=== PATIENT | male | born 1950 | race Caucasian/White ===

== ENCOUNTER 2017-07-30 07:47 | Outpatient (CLI) | payer BC ==
--- NOTE | 2017-07-30 12:33 | MRI Report ---
EXAM MRA BRAIN EXAM DATE: 07/30/2017 08:57 AM. CLINICAL HISTORY: SUBJECTIVE PULSATILE TINNITUS, LEFT. COMPARISON: None. TECHNIQUE: Multiplanar, multisequence MRA sequences of the brain were performed. Other: None. Post-pr ocessing: Multiplanar 3D MIP reconstructions. IV Contrast: None. FINDINGS: RIGHT Internal Carotid (ICA): No aneurysm, stenosis or anomaly. Middle Cerebral (MCA): No aneurysm, stenosis or anomaly. Anterior Cerebral (DANNY): No aneurysm, stenosis or anomaly. Posterior Cerebral (PEARL STRINGER): No aneurysm, stenosis or anomaly. Posterior Communicating (P-COM): Not present. Vertebral: No aneurysm, stenosis or anomaly in the visualized upper vertebral artery. LEFT Internal Carotid (ICA): No aneurysm, stenosis or anomaly. Middle Cerebral (MCA): No aneurysm, stenosis or anomaly. Anterior Cerebral (DANNY): No aneurysm, stenosis or anomaly. Posterior Cerebral (PEARL STRINGER): No aneurysm, stenosis or anomaly. Posterior Communicating (P-COM): Not present. Vertebral: No aneurysm, stenosis or anomaly in the visualized upper vertebral artery. MIDLINE Anterior Communicating (A-COM): No aneurysm, stenosis or anomaly. Basilar Artery:No aneurysm, stenosis or anomaly. Other: None. IMPRESSION: 1. Normal brain MRA. No stenoses or aneurysms. [facility] Referring Provider Line: [phone] SITE ID: [id number]
--- NOTE | 2017-07-30 13:31 | MRI Report ---
EXAM: MR ANGIOGRAM NECK EXAM DATE: 07/30/2017 08:57 AM. CLINICAL HISTORY: Subjective pulsatile tinnitus, left. COMPARISON: None. TECHNIQUE: Multiplanar, multisequence MRA sequences of the neck were performed. Other: None. Post-pro cessing: Multiplanar 3D MIP reconstructions. IV Contrast: None. Evaluation of arterial stenosis is b ased on a NASCET method of measurement. FINDINGS: Inherently limited arterial evaluation at the skull base and in the low neck. As far as visualized, s ymmetric unremarkable appearance of the cervical vertebral and carotid arteries without evidence for acute abnormality or focal flow limiting stenosis. No evidence for space occupying mass associated wi th the cervical carotid arteries. The vertebral and carotid artery flow voids are maintained. Findings are consistent with surgical abs ence of the left half of the thyroid gland. Grossly symmetric vocal cords. IMPRESSION: Unremarkable neck MRA. No hemodynamically significant stenoses. [facility] Referring Provider Line: [phone] SITE ID: [id number]
== END 2017-07-30 07:48 | disposition home or self-care (01) ==
LOC: DI 07:47
PROVIDERS: ATTEND Physician Assistant Medical
DX: H93.12 Tinnitus, left ear (principal)
CPT/HCPCS: 70544; 70547

== ENCOUNTER 2018-11-10 07:23 | Outpatient (CLI) | payer MEDICARE, BC ==
[2018-11-10 13:37] LABS: ALBUMIN/GLOBULIN RATIO 1.3 (1.0-2.2); ALKALINE PHOSPHATASE 57 IU/L (42-121); ALT ALANINE AMINOTRANSFERASE 29 IU/L (10-60); AST ASPARTATE AMINOTRANSFERASE 27 IU/L (10-42); BILIRUBIN,TOTAL 0.6 mg/dL (0.2-1.0); BUN - BLOOD UREA NITROGEN 19 mg/dL (6-20); CALCIUM 9.2 mg/dL (8.5-10.3); CARBON DIOXIDE - CO2 24 mmol/L (21-32); CHLORIDE 106 mmol/L (101-111); CHOL/HDL RATIO 7.3 (<5.0); CHOLESTEROL 271 mg/dL; CREATININE 0.8 mg/dL (0.6-1.2); GFR - MDRD 97 (>89); GLUCOSE 102 mg/dL (70-100); HDL CHOLESTEROL 37 mg/dL; LDL CHOLESTEROL,CALCULATED 173 mg/dL; LDL/HDL RATIO 4.7 (<3.6); SODIUM 138 mmol/L (135-145); TOTAL PROTEIN 7.2 g/dL (6.7-8.2); VLDL CHOLESTEROL 61 mg/dL
== END 2018-11-10 07:24 | disposition home or self-care (01) ==
LOC: LAB.WCP 07:23
PROVIDERS: ATTEND Physician Assistant Medical
DX: E78.5 Hyperlipidemia, unspecified (principal); E03.9 Hypothyroidism, unspecified
CPT/HCPCS: 36415; 80053; 80061; 83721; 84443

== ENCOUNTER 2019-03-07 08:00 | Outpatient (CLI) | payer MEDICARE, BC ==
[2019-03-07 12:49] LABS: ALBUMIN 4.2 g/dL (3.2-5.5); ALBUMIN/GLOBULIN RATIO 1.2 (1.0-2.2); ALKALINE PHOSPHATASE 61 IU/L (42-121); ALT ALANINE AMINOTRANSFERASE 32 IU/L (10-60); AST ASPARTATE AMINOTRANSFERASE 27 IU/L (10-42); BILIRUBIN,TOTAL 0.9 mg/dL (0.2-1.0); BUN - BLOOD UREA NITROGEN 19 mg/dL (6-20); CALCIUM 9.3 mg/dL (8.5-10.3); CARBON DIOXIDE - CO2 27 mmol/L (21-32); CHLORIDE 108 mmol/L (101-111); CHOL/HDL RATIO 3.9 (<5.0); CHOLESTEROL 198 mg/dL; CREATININE 0.8 mg/dL (0.6-1.2); GFR - MDRD 97 (>89); GLUCOSE 100 mg/dL (70-100); HDL CHOLESTEROL 51 mg/dL; LDL CHOLESTEROL,CALCULATED 122 mg/dL; LDL/HDL RATIO 2.4 (<3.6); SODIUM 140 mmol/L (135-145); TOTAL PROTEIN 7.7 g/dL (6.7-8.2); VLDL CHOLESTEROL 25 mg/dL
== END 2019-03-07 23:59 | disposition home or self-care (01) ==
LOC: LAB.WCP 08:00
PROVIDERS: ATTEND Physician Assistant Medical
DX: E78.5 Hyperlipidemia, unspecified (principal)
CPT/HCPCS: 36415; 80053; 80061; 83721

== ENCOUNTER → 2020-02-09 | Outpatient (CLI) | payer MEDICARE, BC ==
--- NOTE | 2020-02-09 18:45 | XRAY Report ---
PROCEDURE: Hand 2 View BILAT INDICATIONS: BILATERAL THUMB PAIN TECHNIQUE: 3 views of the hand(s) acquired. COMPARISON: None FINDINGS: Bones: No fractures or dislocations. Moderate to severe right first CMC joint osteoarthritic changes are seen. Mild right first CMC joint osteoarthritic changes also seen. Mild osteoarthritic changes a re noted throughout bilateral interphalangeal joints. No gross bony erosive changes. No suspicious mari ny lesions. Soft tissues: No suspicious soft tissue calcifications. IMPRESSION: 1. 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 2. Mild osteoarthritic changes in left first CMC joint and bilateral interphalangeal joints. 3. No acute fracture or dislocation. No gross bony erosive changes. Reviewed by: Ildefonso Adames MD on 02/09/2020 9:31 AM PDT Approved by: Ildefonso Adames MD on 02/09/2020 9:31 AM PDT Station ID: [id number]
== END ==
LOC: DI.WCP 08:38
PROVIDERS: ATTEND Physician Assistant
DX: M18.0 Bilateral primary osteoarthritis of first carpometacarpal joints (principal); M19.042 Primary osteoarthritis, left hand; M19.041 Primary osteoarthritis, right hand

== ENCOUNTER 2020-04-10 10:45 | Outpatient (CLI) | payer MEDICARE, BC ==
[2020-04-10 18:28] LABS: BASOPHILS % (AUTO) 0.4 %; EOSINOPHILS # (AUTO) 0.1 10^3/uL (0.0-0.7); EOSINOPHILS % (AUTO) 1.7 %; HGB - HEMOGLOBIN 14.6 g/dL (14.0-18.0); LYMPHOCYTES # (AUTO) 1.6 10^3/uL (1.5-3.5); LYMPHOCYTES % (AUTO) 33.5 %; MEAN CORPUSCULAR HEMOGLOBIN 30.2 pg (27.0-31.0); MEAN CORPUSCULAR HGB CONC 32.2 g/dL (32.0-36.0); MEAN CORPUSCULAR VOLUME 93.8 fL (80.0-94.0); MEAN PLATELET VOLUME 9.8 fL (7.4-11.4); MONOCYTES # (AUTO) 0.5 10^3/uL (0.0-1.0); MONOCYTES % (AUTO) 10.2 %; NEUTROPHILS # (AUTO) 2.6 10^3/uL (1.5-6.6); NEUTROPHILS % (AUTO) 54.2 %; PLT - PLATELET COUNT 241 10^3/uL (130-450); RED BLOOD COUNT 4.83 10^6/uL (4.70-6.10); RED CELL DISTRIBUTION WIDTH 12.8 % (12.0-15.0); WHITE BLOOD COUNT 4.8 x10^3/uL (4.8-10.8)
[2020-04-10 19:01] LABS: ALBUMIN 4.5 g/dL (3.2-5.5); ALBUMIN/GLOBULIN RATIO 1.3 (1.0-2.2); ALKALINE PHOSPHATASE 73 IU/L (42-121); ALT ALANINE AMINOTRANSFERASE 34 IU/L (10-60); AST ASPARTATE AMINOTRANSFERASE 29 IU/L (10-42); BUN - BLOOD UREA NITROGEN 13 mg/dL (6-20); CALCIUM 9.4 mg/dL (8.5-10.3); CARBON DIOXIDE - CO2 29 mmol/L (21-32); CHLORIDE 104 mmol/L (101-111); CHOL/HDL RATIO 4.3 (<5.0); CHOLESTEROL 217 mg/dL; CREATININE 0.9 mg/dL (0.6-1.2); GLUCOSE 96 mg/dL (70-100); HDL CHOLESTEROL 51 mg/dL; LDL CHOLESTEROL,CALCULATED 138 mg/dL; LDL/HDL RATIO 2.7 (<3.6); SODIUM 139 mmol/L (135-145); TOTAL PROTEIN 7.9 g/dL (6.7-8.2); VLDL CHOLESTEROL 28 mg/dL
== END 2020-04-10 10:46 | disposition home or self-care (01) ==
LOC: LAB.WCP 10:45
PROVIDERS: ATTEND Family Medicine
DX: E78.5 Hyperlipidemia, unspecified (principal); Z12.5 Encounter for screening for malignant neoplasm of prostate; J30.9 Allergic rhinitis, unspecified
CPT/HCPCS: 36415; 80053; 80061; 85025; G0103; 83721; 84153

== ENCOUNTER 2020-08-19 13:12 | Outpatient (CLI) | payer MEDICARE, BC ==
--- NOTE | 2020-08-19 14:40 | MRI Report ---
This PROCEDURE: Shoulder LT W/O INDICATIONS: LT BICEP TENDON DISORDER TECHNIQUE: Noncontrast oblique coronal T2 fast spin echo with fat saturation, oblique sagittal T1 spin echo and T2 fast spin echo with fat saturation, axial T1 spin echo and T2 fast spin echo with fat saturation t hrough the shoulder. COMPARISON: None. FINDINGS: Image quality: Excellent. Rotator cuff: Full-thickness tear of the supraspinatus tendon measuring approximately 1 cm in AP dimension as seen on sagittal pulse sequences, and 1 cm as seen on coronal pulse sequences. Infraspinatus tendinopathy and thickening with low-grade partial thickness articular and bursal sided tear as well as interstiti al tearing extending to the musculotendinous junction. The teres minor tendon appears intact. Subscap ularis tendinopathy and thickening. Borderline atrophy of the supraspinatus muscle. There is fatty in filtration of the infraspinatus and supraspinatus. Bones and bursae: No bone marrow contusions or fractures. Moderate hypertrophic acromioclavicular joint degeneration. Glenohumeral joint degeneration. The acromion demonstrates conventional anatomy, without an os acromiale. Moderate glenohumeral joint effusion. Capsule and soft tissues: Labrum: Blunted and frayed appearance of the superior labrum. There is chronic posterior labral tear with adjacent glenoid rim sclerosis and spurring. No subluxed appearance of the humeral head relative to the glenoid to suggest microinstability. Intra-articular segment of the long head biceps tendon is not well visualized and suspected ruptured The rotator interval appears normal, without fibrosis. The coracohumeral ligament is normal in thickness. IMPRESSION: Full-thickness tear of the supraspinatus tendon. Borderline atrophy of the supraspinatus muscle. Infraspinatus tendinopathy with low-grade partial thickness articular and bursal sided tear, and inte rstitial tearing extending to the musculotendinous junction. Subscapularis tendinopathy Chronic posterior labral tear in addition to blunting and fraying of the superior segment (also proba ale chronic/degenerative). Rupture of the long head biceps tendon. Degenerative joint disease, with moderate glenohumeral joint effusion. Reviewed by: Quinten Severino MD on 08/19/2020 2:39 PM PST Approved by: Quinten Severino MD on 08/19/2020 2:39 PM [facility] Station ID: [id number]
== END 2020-08-19 13:13 | disposition home or self-care (01) ==
LOC: DI 13:12
PROVIDERS: ATTEND Physician Assistant Medical
DX: M67.922 Unspecified disorder of synovium and tendon, left upper arm (principal); M19.012 Primary osteoarthritis, left shoulder; S46.112A Strain of muscle, fascia and tendon of long head of biceps, left arm, initial encounter; M75.102 Unspecified rotator cuff tear or rupture of left shoulder, not specified as traumatic; S43.492A Other sprain of left shoulder joint, initial encounter

== ENCOUNTER 2021-08-08 09:54 | Outpatient (CLI) | payer MEDICARE, BC ==
[2021-08-08 12:01] LABS: BASOPHILS % (AUTO) 0.6 %; EOSINOPHILS # (AUTO) 0.1 10^3/uL (0.0-0.7); EOSINOPHILS % (AUTO) 1.6 %; HCT - HEMATOCRIT 41.7 % (42.0-52.0); HGB - HEMOGLOBIN 13.6 g/dL (14.0-18.0); LYMPHOCYTES # (AUTO) 1.5 10^3/uL (1.5-3.5); LYMPHOCYTES % (AUTO) 30.3 %; MEAN CORPUSCULAR HEMOGLOBIN 29.8 pg (27.0-31.0); MEAN CORPUSCULAR HGB CONC 32.6 g/dL (32.0-36.0); MEAN CORPUSCULAR VOLUME 91.2 fL (80.0-94.0); MEAN PLATELET VOLUME 9.8 fL (7.4-11.4); MONOCYTES # (AUTO) 0.4 10^3/uL (0.0-1.0); NEUTROPHILS # (AUTO) 2.9 10^3/uL (1.5-6.6); NEUTROPHILS % (AUTO) 58.3 %; PLT - PLATELET COUNT 239 10^3/uL (130-450); RED BLOOD COUNT 4.57 10^6/uL (4.70-6.10); RED CELL DISTRIBUTION WIDTH 12.7 % (12.0-15.0); WHITE BLOOD COUNT 4.9 x10^3/uL (4.8-10.8)
[2021-08-08 12:36] LABS: THYROID STIMULATING HORMONE 3.75 uIU/mL (0.34-5.60)
[2021-08-08 12:39] LABS: ALBUMIN 4.1 g/dL (3.2-5.5); ALBUMIN/GLOBULIN RATIO 1.3 (1.0-2.2); ALKALINE PHOSPHATASE 62 IU/L (42-121); ALT ALANINE AMINOTRANSFERASE 20 IU/L (10-60); AST ASPARTATE AMINOTRANSFERASE 21 IU/L (10-42); BILIRUBIN,TOTAL 0.7 mg/dL (0.2-1.0); BUN - BLOOD UREA NITROGEN 14 mg/dL (6-20); CALCIUM 9.3 mg/dL (8.5-10.3); CARBON DIOXIDE - CO2 27 mmol/L (21-32); CHLORIDE 105 mmol/L (101-111); CHOL/HDL RATIO 3.6 (<5.0); CHOLESTEROL 168 mg/dL; CREATININE 0.9 mg/dL (0.6-1.2); GFR - MDRD 84 (>89); GLUCOSE 95 mg/dL (70-100); HDL CHOLESTEROL 47 mg/dL; LDL CHOLESTEROL,CALCULATED 96 mg/dL; POTASSIUM 4.6 mmol/L (3.5-5.0); SODIUM 140 mmol/L (135-145); TOTAL PROTEIN 7.3 g/dL (6.7-8.2); TRIGLYCERIDES 124 mg/dL; VLDL CHOLESTEROL 25 mg/dL
== END 2021-08-08 09:55 | disposition home or self-care (01) ==
LOC: LAB.N 09:54
PROVIDERS: ATTEND Physician Assistant Medical
DX: E78.5 Hyperlipidemia, unspecified (principal); Z12.5 Encounter for screening for malignant neoplasm of prostate; E03.9 Hypothyroidism, unspecified; I10 Essential (primary) hypertension; R97.20 Elevated prostate specific antigen [PSA]
CPT/HCPCS: 36415; 80053; 80061; 84443; 85025; G0103; 83721; 84153

== ENCOUNTER 2021-08-18 08:00 | Outpatient (CLI) | payer MEDICARE, BC ==
[2021-08-18 12:00] LABS: FECAL OCCULT BLOOD (FIT) NEGATIVE (NEGATIVE)
== END 2021-08-18 23:59 | disposition home or self-care (01) ==
LOC: LAB.N 08:00
PROVIDERS: ATTEND Physician Assistant Medical
DX: D64.9 Anemia, unspecified (principal)
CPT/HCPCS: 82274

== ENCOUNTER 2021-08-28 09:44 | Outpatient (CLI) | payer MEDICARE, BC ==
--- NOTE | 2021-08-28 16:47 | MRI Report ---
PROCEDURE: Knee LT W/O INDICATIONS: LEFT KNEE PAIN TECHNIQUE: Noncontrast sagittal PD fast spin echo and T2 fast spin echo with fat saturation, sagittal 3-D gradie nt sequence with fat saturation; coronal T1 spin echo and PD fast spin echo with fat saturation, and axial PD fast spin echo with fat saturation through the knee. COMPARISON: None. FINDINGS: Image quality: Excellent. Menisci: Medial meniscal extrusion. The posterior horn and body of the medial meniscus is truncated, consistent with tear. The lateral meniscus demonstrates normal morphology and internal signal. The m eniscal root ligaments appear intact. Cruciate ligaments: The anterior and posterior cruciate ligaments appear intact. Medial structures: The medial collateral ligament appears intact. The semimembranosus tendon insert ionsand meniscocapsular junction appear intact. Visualized portions of the pes anserinus tendons zahraa ear normal. No abnormal bursal fluid. Lateral structures: The lateral collateral ligament, long and short heads of the biceps femoris tend on appear intact. The popliteus tendon appears normal. Iliotibial band appears normal. Anterior structures: The quadriceps and patellar tendons appear intact. Patellar alignment is brody l. No femoral trochlear dysplasia or ventral trochlear prominence. No edema in the infrapatellar fa t pad. Bones and cartilage: No bone marrow contusions or fractures. There is tricompartmental chondromalaci a, most pronounced and severe in the medial femorotibial compartment. Subchondral edema in the medial tibial plateau is likely secondary to reactive edema. A full-thickness cartilage defect is also note d in the weightbearing portion of the lateral femoral condyle measuring approximately 2.5 cm AP x 1.2 cm transverse (series 901 image 19; series 501 image 9). Mild subchondral edema in the lateral femo ral condyle. Mild chondral malacia patella without full-thickness cartilage defect. Joint space: There is small knee joint effusion. A small Soliman's cyst. Normal appearing synovial pl icae are incidentally noted. IMPRESSION: 1. Large tear of the posterior horn and body of the medial meniscus. 2. Severe cartilage loss in the medial femorotibial compartment. 3. A 2.5 x 1.2 cm full-thickness cartilage defect in the weightbearing portion of the lateral femoral condyle. 4. Small knee joint effusion. 5. A small Soliman's cyst. Reviewed by: Stephanie Arana MD on 08/28/2021 4:46 PM PST Approved by: Stephanie Arana MD on 08/28/2021 4:46 PM PST Station ID: [id number]
== END 2021-08-28 09:45 | disposition home or self-care (01) ==
LOC: DI 09:44
PROVIDERS: ATTEND Physician Assistant Medical
DX: S83.242A Other tear of medial meniscus, current injury, left knee, initial encounter (principal); M24.19 Other articular cartilage disorders, other specified site; M25.462 Effusion, left knee; M71.22 Synovial cyst of popliteal space [Baker], left knee

== ENCOUNTER 2021-09-30 10:15 | Outpatient (CLI) | payer MEDICARE, BC ==
--- NOTE | 2021-09-30 11:22 | XRAY Report ---
PROCEDURE: Knee 4 View LT INDICATIONS: LEFT KNEE PAIN TECHNIQUE: 4 views of the left knee(s) were acquired. COMPARISON: None. FINDINGS: Bones: Severe medial compartmental joint space narrowing with marginal osteophyte noted. There is mil d lateral and patellofemoral joint space narrowing as well. No joint effusion. Soft tissues: No joint effusion. No suspicious soft tissue calcifications. IMPRESSION: Degenerative osteoarthritis with medial compartmental prominence Reviewed by: Javier Thomason MD on 09/30/2021 10:21 AM [facility] Approved by: Javier Thomason MD on 09/30/2021 10:21 AM [facility] Station ID: [id number]
== END 2021-09-30 23:59 | disposition home or self-care (01) ==
LOC: DI.WOS 10:15
PROVIDERS: ATTEND Physician Assistant
DX: M17.12 Unilateral primary osteoarthritis, left knee (principal)

== ENCOUNTER 2021-10-20 12:30 | Outpatient (CLI) | payer MEDICARE, BC ==
[2021-10-20 18:24] LABS: BASOPHILS % (AUTO) 0.7 %; EOSINOPHILS # (AUTO) 0.1 10^3/uL (0.0-0.7); EOSINOPHILS % (AUTO) 1.1 %; HCT - HEMATOCRIT 40.7 % (42.0-52.0); HGB - HEMOGLOBIN 13.3 g/dL (14.0-18.0); LYMPHOCYTES # (AUTO) 1.6 10^3/uL (1.5-3.5); LYMPHOCYTES % (AUTO) 29.5 %; MEAN CORPUSCULAR HEMOGLOBIN 29.7 pg (27.0-31.0); MEAN CORPUSCULAR HGB CONC 32.7 g/dL (32.0-36.0); MEAN CORPUSCULAR VOLUME 90.8 fL (80.0-94.0); MEAN PLATELET VOLUME 10.1 fL (7.4-11.4); MONOCYTES # (AUTO) 0.4 10^3/uL (0.0-1.0); MONOCYTES % (AUTO) 7.5 %; NEUTROPHILS # (AUTO) 3.4 10^3/uL (1.5-6.6); PLT - PLATELET COUNT 207 10^3/uL (130-450); RED BLOOD COUNT 4.48 10^6/uL (4.70-6.10); RED CELL DISTRIBUTION WIDTH 12.5 % (12.0-15.0); WHITE BLOOD COUNT 5.5 x10^3/uL (4.8-10.8)
== END 2021-10-20 12:31 | disposition home or self-care (01) ==
LOC: LAB.N 12:30
PROVIDERS: ATTEND Physician Assistant Medical
DX: D64.9 Anemia, unspecified (principal)
CPT/HCPCS: 36415; 85025

== ENCOUNTER 2021-10-22 10:57 | Outpatient (CLI) | payer MEDICARE, BC ==
[2021-10-22 18:05] LABS: % IRON SATURATION 22 % (20-50); IRON 93 ug/dL (45-182); TOTAL IRON BINDING CAPACITY 416 ug/dL (250-450); TRANSFERRIN 297 mg/dL (180-329)
[2021-10-22 18:25] LABS: FERRITIN 31.2 ng/mL (23.9-336.2)
[2021-10-22 18:29] LABS: FOLATE 9.93 ng/mL (5.90 - >24.8)
== END 2021-10-22 10:58 | disposition home or self-care (01) ==
LOC: LAB.N 10:57
PROVIDERS: ATTEND Physician Assistant Medical
DX: D64.9 Anemia, unspecified (principal)
CPT/HCPCS: 36415; 82607; 82728; 82746; 83540; 84466

== ENCOUNTER 2021-10-28 12:36 | Outpatient (CLI) | payer MEDICARE, BC ==
[2021-10-28 18:13] LABS: % IRON SATURATION 22 % (20-50); IRON 90 ug/dL (45-182); TOTAL IRON BINDING CAPACITY 412 ug/dL (250-450); TRANSFERRIN 294 mg/dL (180-329)
[2021-10-28 18:28] LABS: FERRITIN 30.3 ng/mL (23.9-336.2)
== END 2021-10-28 12:37 | disposition home or self-care (01) ==
LOC: LAB.N 12:36
PROVIDERS: ATTEND Physician Assistant Medical
DX: D64.9 Anemia, unspecified (principal)
CPT/HCPCS: 36415; 82607; 82728; 83540; 84466

== ENCOUNTER 2021-12-15 08:25 | Outpatient (CLI) | payer MEDICARE, BC | END 2021-12-15 08:26 | disposition home or self-care (01) | LOC: LAB.N 08:25 | PROVIDERS: ATTEND Physician Assistant Medical | DX: E53.8 Deficiency of other specified B group vitamins (principal) | CPT/HCPCS: 36415; 82607 ==

== ENCOUNTER 2022-03-12 08:07 | Outpatient (CLI) | payer MEDICARE, BC | END 2022-03-12 08:08 | disposition home or self-care (01) | LOC: LAB.N 08:07 | PROVIDERS: ATTEND Physician Assistant Medical | DX: E53.8 Deficiency of other specified B group vitamins (principal) | CPT/HCPCS: 36415; 82607 ==

== ENCOUNTER 2022-08-04 09:32 | Outpatient (CLI) | payer MEDICARE, BC | END 2022-08-04 09:33 | disposition home or self-care (01) | LOC: LAB.N 09:32 | PROVIDERS: ATTEND Physician Assistant Medical | DX: Z53.9 Procedure and treatment not carried out, unspecified reason (principal) | CPT/HCPCS: 36415; 80053; 80061; 82607; 83721; 84443; 85025 ==

== ENCOUNTER 2022-08-06 09:54 | Outpatient (CLI) | payer MEDICARE, BC ==
[2022-08-06 10:12] LABS: BASOPHILS % (AUTO) 0.9 %; EOSINOPHILS # (AUTO) 0.1 10^3/uL (0.0-0.7); EOSINOPHILS % (AUTO) 1.1 %; HCT - HEMATOCRIT 43.4 % (42.0-52.0); LYMPHOCYTES # (AUTO) 1.3 10^3/uL (1.5-3.5); MEAN CORPUSCULAR HEMOGLOBIN 29.2 pg (27.0-31.0); MEAN CORPUSCULAR HGB CONC 32.3 g/dL (32.0-36.0); MEAN CORPUSCULAR VOLUME 90.6 fL (80.0-94.0); MONOCYTES # (AUTO) 0.3 10^3/uL (0.0-1.0); MONOCYTES % (AUTO) 7.2 %; NEUTROPHILS # (AUTO) 2.7 10^3/uL (1.5-6.6); NEUTROPHILS % (AUTO) 60.6 %; PLT - PLATELET COUNT 208 10^3/uL (130-450); RED BLOOD COUNT 4.79 10^6/uL (4.70-6.10); RED CELL DISTRIBUTION WIDTH 12.7 % (12.0-15.0); WHITE BLOOD COUNT 4.4 x10^3/uL (4.8-10.8)
[2022-08-06 10:31] LABS: ALBUMIN 4.2 g/dL (3.2-5.5); ALBUMIN/GLOBULIN RATIO 1.3 (1.0-2.2); ALKALINE PHOSPHATASE 59 IU/L (42-121); ALT ALANINE AMINOTRANSFERASE 22 IU/L (10-60); AST ASPARTATE AMINOTRANSFERASE 21 IU/L (10-42); BILIRUBIN,TOTAL 1.1 mg/dL (0.2-1.0); BUN - BLOOD UREA NITROGEN 12 mg/dL (6-20); CALCIUM 8.9 mg/dL (8.5-10.3); CARBON DIOXIDE - CO2 24 mmol/L (21-32); CHLORIDE 99 mmol/L (101-111); CHOL/HDL RATIO 6.6 (<5.0); CHOLESTEROL 331 mg/dL; CREATININE 0.9 mg/dL (0.6-1.2); GFR - MDRD 84 (>89); GLUCOSE 95 mg/dL (70-100); HDL CHOLESTEROL 50 mg/dL; LDL CHOLESTEROL,CALCULATED 253 mg/dL; LDL/HDL RATIO 5.1 (<3.6); POTASSIUM 4.4 mmol/L (3.5-5.0); SODIUM 134 mmol/L (135-145); TOTAL PROTEIN 7.4 g/dL (6.7-8.2); TRIGLYCERIDES 140 mg/dL; VLDL CHOLESTEROL 28 mg/dL
[2022-08-06 10:43] LABS: THYROID STIMULATING HORMONE 1.88 uIU/mL (0.34-5.60)
== END 2022-08-06 09:55 | disposition home or self-care (01) ==
LOC: LAB 09:54
PROVIDERS: ATTEND Physician Assistant Medical
DX: E78.5 Hyperlipidemia, unspecified (principal); E53.8 Deficiency of other specified B group vitamins; E03.9 Hypothyroidism, unspecified
CPT/HCPCS: 36415; 80053; 80061; 82607; 83721; 84443; 85025

== ENCOUNTER 2023-04-20 08:09 | Outpatient (CLI) | payer MEDICARE, BC ==
[2023-04-20 08:35] LABS: CHOL/HDL RATIO 3.6 (<5.0); CHOLESTEROL 185 mg/dL; HDL CHOLESTEROL 52 mg/dL; LDL CHOLESTEROL,CALCULATED 106 mg/dL; TRIGLYCERIDES 137 mg/dL (48-352); VLDL CHOLESTEROL 27 mg/dL
== END 2023-04-20 08:10 | disposition home or self-care (01) ==
LOC: LAB 08:09
PROVIDERS: ATTEND Physician Assistant Medical
DX: E78.5 Hyperlipidemia, unspecified (principal)
CPT/HCPCS: 36415; 80061; 83721

== ENCOUNTER 2023-09-10 09:07 | Outpatient (CLI) | payer MEDICARE, BC ==
[2023-09-10 09:48] LABS: ALBUMIN 4.4 g/dL (3.2-5.5); ALBUMIN/GLOBULIN RATIO 1.8 (1.0-2.2); ALKALINE PHOSPHATASE 64 IU/L (42-121); ALT ALANINE AMINOTRANSFERASE 18 IU/L (10-60); AST ASPARTATE AMINOTRANSFERASE 18 IU/L (10-42); BILIRUBIN,TOTAL 0.9 mg/dL (0.2-1.0); BUN - BLOOD UREA NITROGEN 17 mg/dL (6-20); CALCIUM 9.7 mg/dL (8.5-10.3); CARBON DIOXIDE - CO2 30 mmol/L (21-32); CHLORIDE 106 mmol/L (101-111); CHOL/HDL RATIO 3.7 (<5.0); CHOLESTEROL 181 mg/dL; CREATININE 0.8 mg/dL (0.6-1.3); GFR - MDRD 95 (>89); GLUCOSE 95 mg/dL (74-104); HDL CHOLESTEROL 49 mg/dL; LDL CHOLESTEROL,CALCULATED 105 mg/dL; LDL/HDL RATIO 2.1 (<3.6); POTASSIUM 4.4 mmol/L (3.5-4.5); SODIUM 140 mmol/L (135-145); TOTAL PROTEIN 6.9 g/dL (6.4-8.9); TRIGLYCERIDES 133 mg/dL (48-352); VLDL CHOLESTEROL 27 mg/dL
[2023-09-10 10:00] LABS: BASOPHILS % (AUTO) 0.7 %; EOSINOPHILS # (AUTO) 0.1 10^3/uL (0.0-0.7); EOSINOPHILS % (AUTO) 2.5 %; HCT - HEMATOCRIT 39.9 % (42.0-52.0); HGB - HEMOGLOBIN 13.1 g/dL (14.0-18.0); LYMPHOCYTES # (AUTO) 1.3 10^3/uL (1.5-3.5); LYMPHOCYTES % (AUTO) 32.8 %; MEAN CORPUSCULAR HEMOGLOBIN 30.1 pg (27.0-31.0); MEAN CORPUSCULAR HGB CONC 32.8 g/dL (32.0-36.0); MEAN CORPUSCULAR VOLUME 91.7 fL (80.0-94.0); MEAN PLATELET VOLUME 9.7 fL (7.4-11.4); MONOCYTES # (AUTO) 0.4 10^3/uL (0.0-1.0); MONOCYTES % (AUTO) 9.4 %; NEUTROPHILS # (AUTO) 2.2 10^3/uL (1.5-6.6); NEUTROPHILS % (AUTO) 54.4 %; PLT - PLATELET COUNT 190 10^3/uL (130-450); RED BLOOD COUNT 4.35 10^6/uL (4.70-6.10); RED CELL DISTRIBUTION WIDTH 12.7 % (12.0-15.0); WHITE BLOOD COUNT 4.1 x10^3/uL (4.8-10.8)
== END 2023-09-10 09:08 | disposition home or self-care (01) ==
LOC: LAB 09:07
PROVIDERS: ATTEND Physician Assistant Medical
DX: E78.5 Hyperlipidemia, unspecified (principal); Z12.5 Encounter for screening for malignant neoplasm of prostate; E53.8 Deficiency of other specified B group vitamins; E03.9 Hypothyroidism, unspecified
CPT/HCPCS: 36415; 80053; 80061; 82607; 84443; 85025; G0103; 83721; 84153

== ENCOUNTER 2023-10-15 11:44 | Outpatient (CLI) | payer MEDICARE, BC ==
--- NOTE | 2023-10-15 17:56 | Ultrasound Report ---
PROCEDURE: Soft Tissue Head or Neck INDICATIONS: 73-year-old male with right-sided thyroid nodules status post left thyroidectomy TECHNIQUE: Real-time scanning was performed of the thyroid gland, with image documentation. COMPARISON: 02/10/2016 FINDINGS: Right: Thyroid lobe measures 3.9 x 1.6 x 1.2 cm, and is homogeneous in echotexture. Left: Unilateral thyroidectomy Isthmus: 0.4 cm thick. Nodule number: One Location: Right superior Size: 0.5 x 0.5 x 0.4 cm, previously 0.9 x 0.6 x 0.7 cm. Composition: Solid. Echogenicity: Hyperechoic. Shape: wider than tall (0 points). Margins: Smooth (0 points). Echogenic foci: None (0 points). Total points: 3 ACR TI-RADS category: 3 Nodule number: Two Location: Right mid Size: 0.5 x 0.4 x 0.4 cm, previously 0.7 x 0.5, 0.7 cm. Composition: Solid. Echogenicity: Paracolic. Shape: wider than tall (0 points). Margins: Smooth (0 points). Echogenic foci: None (0 points). Total points: 3 ACR TI-RADS category: 3 Nodule number: Three Location: Right inferior Size: 0.8 x 1.1 x 1.0 cm, previously 1.4 x 1.2 x 1.2 cm. Composition: Solid. Echogenicity: Isoechoic. Shape: wider than tall (0 points). Margins: Smooth (0 points). Echogenic foci: None (0 points). Total points: 3 ACR TI-RADS category: 3 IMPRESSION: Small benign-appearing right-sided category 3 nodules. No follow-up necessary. ACR TI-RADS definitions and recommendations: TI-RADS 1 (benign): 0 points. FNA not needed. TI-RADS 2 (not suspicious): 2 points. FNA not needed. TI-RADS 3 (mildly suspicious): 3 points. "FNA if 2.5 cm or larger, follow up if 1.5 cm or larger (at 1, 3, and 5 years). TI-RADS 4 (moderately suspicious): 4-6 points. "FNA if 1.5 cm or larger, follow up if 1 cm or larger (at 1, 2, 3, and 5 years). TI-RADS 5 (highly suspicious): 7 points or more. "FNA if 1 cm or larger, follow up if 0.5 cm or larger (every year for 5 years). Reviewed by: Javier Thomason MD on 10/15/2023 4:54 PM [facility] Approved by: Javier Thomason MD on 10/15/2023 4:54 PM [facility] Station ID: [id number]
== END 2023-10-15 11:45 | disposition home or self-care (01) ==
LOC: DI 11:44
PROVIDERS: ATTEND Physician Assistant Medical
DX: E04.2 Nontoxic multinodular goiter (principal)

== ENCOUNTER 2023-12-20 15:24 | Outpatient (CLI) | payer MEDICARE, BC ==
[~2023-12-20 15:24] MED LIST: GADOTERATE MEGLUMINE 10 MMOL/20 ML VIAL ONE
--- NOTE | 2023-12-20 17:39 | MRI Report ---
PROCEDURE: Brain W/WO INDICATIONS: TIA CONTRAST: Clariscan 16.4ml TECHNIQUE: Noncontrast axial T1 spin echo, axial T2 fast spin echo, sagittal and axial FLAIR, coronal T2 fast sp in echo, axial gradient echo, axial diffusion and ADC through the brain. After the administration of contrast, axial and coronal T1 spin echo with fat saturation through the brain. COMPARISON: Correlation is made with CT examinations, 11/27/2023 FINDINGS: Image quality: Excellent. CSF spaces: Basal cisterns are patent. No extra-axial fluid collections. Ventricles are normal in size and shape. Brain: No midline shift. No intracranial bleeds or masses. No abnormal intracranial enhancement. There is cerebral volume loss for age. There is periventricular white matter chronic small vessel is chemic change. The brainstem appears normal. Diffusion-weighted images demonstrate no acute ischemi c insults. No chronic ischemic insults. Normal intravascular flow voids are present. Skull and face: Calvarial marrow is normal in signal. Orbits appear normal. Sinuses: Sinuses and mastoids appear clear. IMPRESSION: No findings of acute or subacute infarction are seen. No masses or abnormal enhancement can be seen. Age-appropriate brain parenchymal volume loss and chronic small vessel ischemic change can be seen. Reviewed by: Benito Landa MD on 12/20/2023 4:38 PM [facility] Approved by: Benito Landa MD on 12/20/2023 4:38 PM [facility] Station ID: [id number]
[2023-12-20] MEDS: GADOTERATE MEGLUMINE 10 MMOL/20 ML VIAL IVP ONE (17:57)
== END 2023-12-20 15:25 | disposition home or self-care (01) ==
LOC: DI 15:24
PROVIDERS: ATTEND Physician Assistant Medical
DX: G45.9 Transient cerebral ischemic attack, unspecified (principal)
CPT/HCPCS: 70553; A9575

== ENCOUNTER 2023-12-21 18:22 | Outpatient (CLI) | payer MEDICARE, BC ==
--- NOTE | 2023-12-22 16:45 | Ultrasound Report ---
PROCEDURE: Carotid Doppler Complete INDICATIONS: TIA TECHNIQUE: Color and pulse Doppler interrogation was performed of both carotid systems, with image documentation and velocity measurements. COMPARISON: CTA head and neck on November 27, 2023. FINDINGS: Right side: Brachial blood pressure: 119 mm Hg. Common carotid artery peak systolic velocity: 58.8 cm/sec. Internal carotid artery peak systolic velocity: 72.7 cm/sec. Internal carotid artery end diastolic velocity: 27.9 cm/sec. External carotid artery peak systolic velocity: 94.3 cm/sec. ICA/CCA peak systolic ratio: 1.2 . Valenzuela scale imaging description: Mild atherosclerotic plaque. Percent internal carotid artery stenosis: Less than 50 percent stenosis. Vertebral artery: Flow direction is antegrade. Left side: Brachial blood pressure: 122 mm Hg. Common carotid artery peak systolic velocity: 78.2 cm/sec. Internal carotid artery peak systolic velocity: 77.1 cm/sec. Internal carotid artery end diastolic velocity: 25.7 cm/sec. External carotid artery peak systolic velocity: 61.7 cm/sec. ICA/CCA peak systolic ratio: 1 . Valenzuela scale imaging description: Mild atherosclerotic plaque. Percent internal carotid artery stenosis: Less than 50 percent stenosis. Vertebral artery: Flow direction is antegrade. IMPRESSION: 1. In the right internal carotid artery, there is less than 50 percent stenosis based on peak systoli c velocity criteria. 2. In the left internal carotid artery, there is less than 50 percent stenosis based on peak systolic velocity criteria. 3. Antegrade blood flow within the right vertebral artery. 4. Antegrade blood flow within the left vertebral artery. The estimate of stenosis included in the report of the imaging study was calculated using the [facility]-end orsed standards of carotid artery stenosis. Reviewed by: Solange Bhandari MD on 12/22/2023 4:43 PM PDT Approved by: Solange Bhandari MD on 12/22/2023 4:43 PM PDT Station ID: [id number]
== END 2023-12-21 18:23 | disposition home or self-care (01) ==
LOC: DI 18:22
PROVIDERS: ATTEND Physician Assistant Medical
DX: G45.9 Transient cerebral ischemic attack, unspecified (principal); E78.5 Hyperlipidemia, unspecified; I10 Essential (primary) hypertension
CPT/HCPCS: 93880

== ENCOUNTER 2023-12-30 10:30 | Outpatient (CLI) | payer MEDICARE, BC | END 2023-12-30 10:31 | disposition home or self-care (01) | LOC: DI 10:30 | PROVIDERS: ATTEND Physician Assistant Medical | DX: G45.9 Transient cerebral ischemic attack, unspecified (principal) | CPT/HCPCS: 93307 ==